=== PATIENT | female | born 1950 | race Caucasian/White ===

== ENCOUNTER 2017-08-31 06:18 | Observation (INO) | payer MEDICARE, OTHER ==
[~2017-08-31] VITALS: Ht 160 cm; Wt 75.8 kg
[~2017-08-31 06:18] MED LIST: ADVAIR 500/501 EA INH; ATENOLOL25 MG PO; ATENOLOL50 MG PO; ATORVASTATIN CA20 MG PO; BUPROBAN150 MG PO; CALCIUM500 M1 PO; CIPRO500 MG PO; DYMISTA NASAL S23 GM; ESTRADIOL1 MG PO; FLAGYL500 MG PO; FLECAINIDE ACE100 MG PO; KLOR-CON 88 MEQ PO; LEVAQUIN500 MG PO; LEVOCETIRIZINE D5 MG PO; LOSARTAN POTAS100 MG PO; LOSARTAN-HCTZ1 EAC1 PO; MARTINIC1 EACH PO; MONTELUKAST SOD10 MG PO; PANTOPRAZOLE SO40 MG PO; PROAIR HFA INH8.5 GM INH; PROMETHAZINE HC25 M1 PO; RESTASIS1 EACH OU; TYLENOL WITH C1 EACH PO; VITAMIN D-40400 UNIT PO; XYZAL5 MG PO
[2017-08-31] MEDS ORDERED: ASPIRIN 81 MG CHEW TAB PO ONE ×2 (07:00→09:00)
[2017-08-31 07:13] LABS: BASOPHILS % 0.5 % (0.0-1.0); EOSINOPHILS # (AUTO) 0.1 (0.0-0.4); EOSINOPHILS % 1.1 % (0.0-6.0); HEMATOCRIT 37.2 % (34.2-44.1); HEMOGLOBIN 13.3 g/dL (12.0-16.0); LYMPHOCYTES # (AUTO) 2.4 (1.0-3.2); LYMPHOCYTES % 28.5 % (18.0-39.1); MEAN CORPUSCULAR HEMOGLOBIN 29.5 pg (28-32); MEAN CORPUSCULAR HGB CONC 35.8 g/dL (31-35); MEAN CORPUSCULAR VOLUME 82.5 fL (81-99); MONOCYTES # (AUTO) 0.7 (0.2-0.8); MONOCYTES % 8.3 % (4.4-11.3); NEUTROPHILS # (AUTO) 5.2 (2.1-6.9); PLATELET COUNT 402 x10e3/uL (140-360); RED BLOOD COUNT 4.51 x10e6/uL (3.6-5.1); RED CELL DISTRIBUTION WIDTH 12.8 % (11.7-14.4)
--- NOTE | 2017-08-31 07:21 | Diagnostic Imaging Report ---
PROCEDURE:CHEST SINGLE (NOT PORTABLE) TECHNIQUE:PA chest INDICATION:Chest pain COMPARISON:Patients [facility], , CHEST SINGLE (PORTABLE), 08/31/2014, 7:19. FINDINGS: Lungs are clear and symmetrically inflated. No pleural effusions. Cardiac size, mediastinal contour and pulmonary vasculature are normal. Intact skeleton. CONCLUSION: No acute abnormality or conspicuous etiology for chest pain. Dictated by: Joni Maldonado M.D. on 08/31/2017 at 7:30 Electronically approved by: Joni Maldonado M.D. on 08/31/2017 at 7:30
[2017-08-31 07:24] LABS: INR 0.78; PROTHROMBIN TIME 11.2 seconds (11.9-14.5)
[2017-08-31 07:25] LABS: PARTIAL THROMBOPLASTIN TIME 27.4 seconds (23.8-35.5)
[2017-08-31 07:35] LABS: ALANINE AMINOTRANSFERASE 15 IU/L (0-55); ALBUMIN 3.5 g/dL (3.5-5.0); ALBUMIN/GLOBULIN RATIO 0.8 (0.8-2.0); ALKALINE PHOSPHATASE 120 IU/L (40-150); ANION GAP 14.8 mmol/L (8-16); BLOOD UREA NITROGEN 13 mg/dL (7-26); BUN/CREATININE RATIO 15 (6-25); CALCIUM 9.6 mg/dL (8.4-10.2); CARBON DIOXIDE 26 mmol/L (22-29); CHLORIDE 93 mmol/L (98-107); CREATINE KINASE 49 IU/L (29-168); CREATININE, SERUM 0.86 mg/dL (0.57-1.11); EST GLOMERULAR FILTRATION RATE > 60 ML/MIN (60-); GLUCOSE 93 mg/dL (74-118); SODIUM 131 mmol/L (136-145)
[2017-08-31 07:41] LABS: POTASSIUM 2.8 mmol/L (3.5-5.1)
[2017-08-31] MEDS ORDERED: POTASSIUM CHLORIDE 20 MEQ TAB CR PO STA (07:42)
[2017-08-31 08:28] LABS: BILIRUBIN,URINE NEGATIVE (NEGATIVE); CLARITY,URINE CLEAR (CLEAR); COLOR,URINE YELLOW (YELLOW); KETONES,URINE NEGATIVE (NEGATIVE); LEUKOCYTE ESTERASE ,URINE NEGATIVE (NEGATIVE); NITRITE,URINE NEGATIVE (NEGATIVE); PROTEIN,URINE DIPSTICK NEGATIVE (NEGATIVE); URINE UROBILINOGEN 0.2 mg/dL (0.2 - 1)
[2017-08-31] MEDS ORDERED: NITROGLYCERIN 2% OINT 1 GM PKT TOP ONE (08:30)
[2017-08-31] MEDS ORDERED: SODIUM CHLORIDE FLUSH 10 ML SYR INJ PRN (09:00)
[2017-08-31] MEDS ORDERED: NITROGLYCERIN 0.4 MG SUBL SL PRN (09:00)
[2017-08-31] MEDS ORDERED: ASPIRIN 81 MG ENTERIC COATED PO SCH (09:00)
[2017-08-31] MEDS ORDERED: CLOPIDOGREL BISULFATE 75 MG TAB PO STA (09:08)
[2017-08-31 09:17] LABS: BACTERIA,URINE RARE /HPF; EPITHELIAL CELLS,URINE FEW /LPF
[2017-08-31] MEDS: SODIUM CHLORIDE 0.9% 1000ML 1,000 ML IV SCH ×3 (09:30→23:33)
[2017-08-31] MEDS: FAMOTIDINE 20 MG TAB PO SCH ×2 (10:20→20:17)
[2017-08-31] MEDS: POTASSIUM CHLORIDE 20 MEQ TAB CR PO SCH ×3 (10:29→20:16)
[2017-08-31] MEDS ORDERED: METOPROLOL SUCC50 MG PO (15:03)
[2017-08-31] MEDS ORDERED: MAGNESIUM500 MG PO (15:03)
[2017-08-31] MEDS ORDERED: HYDROCHLOROTHIA25 MG PO (15:03)
[2017-08-31] MEDS ORDERED: OXYBUTYNIN CHLOR5 M1 PO (15:03)
[2017-08-31] MEDS ORDERED: LACTULOSE20 GM/30 M PO (15:03)
[2017-08-31] MEDS ORDERED: CALTRATE 600 W1 EACH PO (15:03)
[2017-08-31] MEDS ORDERED: RANITIDINE HCL150 MG PO (15:03)
[2017-08-31] MEDS ORDERED: AMLODIPINE BESY10 MG PO (15:03)
[2017-08-31] MEDS ORDERED: PANTOPRAZOLE SO40 MG PO (15:03)
[2017-08-31] MEDS ORDERED: VITAMIN B COMP1 EACH (15:03)
[2017-08-31] MEDS ORDERED: FUROSEMIDE40 MG PO (15:03)
[2017-08-31] MEDS ORDERED: LEVOCETIRIZINE D5 MG PO (15:03)
[2017-08-31 15:46] LABS: CREATINE KINASE MB 0.7 ng/mL (0.00-5.00)
--- NOTE | 2017-08-31 17:14 | History and Physical ---
The patient comes in with back pain. HISTORY OF PRESENT ILLNESS: Ms. Venegas has a history of irritable bowel syndrome. She was given Lactulose on a prophylactic basis for constipation or obstipation. She did have this on Monday and had violent diarrhea and the patient kept on going with amount of fluids. The patient felt weak and tired and this morning the patient woke up and walked into the [facility]. Her was questioning her mental status, and she was brought into the emergency room and was found to have hyperkalemia and also the patient complained of some chest pain and rule out chest pain. PAST MEDICAL HISTORY: History of hypertension. History of irritable bowel syndrome. History of allergic rhinitis. History of incontinence. History of reflux esophagitis and history of hypertension. Atrial fibrillation status post ablation. HOME MEDICATIONS: Amlodipine 10 mg, calcium carbonate, Caltrate, Lasix 40 mg as needed, hydrochlorothiazide 25 mg, levocetirizine at 5 mg, magnesium 500 mg, metoprolol ER 50 mg q.24 h, oxybutynin 5 mg, 40 mg, potassium chloride 80 mEq, Ranitidine 150 and vitamin B complex. PAST SURGICAL HISTORY: Cholecystectomy. She had a hysterectomy, and she also had ablation for atrial fibrillation, and she been taking blood thinner ever since. REVIEW OF SYSTEMS: Positive for some chest pain radiating to the back. Positive for some shortness of breath. No nausea or vomiting. Positive for diarrhea, as mentioned above. No constipation. No rectal bleeding. No hematochezia or hematemesis. Positive for some shortness of breath on exertion. PHYSICAL EXAMINATION GENERAL: The patient is alert and oriented x3. VITAL SIGNS: Blood pressure 122/59, pulse 57, respiratory rate 15. HEENT: Normocephalic, atraumatic. Pupils react to light and accommodation. CVS: S1 and S2 normal. Regular rate and rhythm. ABDOMEN: Nontender, nondistended. EXTREMITIES: No cyanosis, clubbing or edema. LABORATORY DATA: Labs of note: Sodium 131, potassium 2.8, albumin 4.4, BNP 41, BUN 13 and creatinine 0.86. Hematology: White count 8.46. Platelet count 402,000. Urine was all negative. ASSESSMENT 1. Hyperkalemia. 2. Hypernatremia. 3. Volume depletion. PLAN: Give the patient fluids. Will keep her off her diuretics right now. Fluids running at 25 mL an hour. Will go ahead and recheck her labs for tomorrow. Further recommendations depending on clinical course. Will continue to monitor the patient. The patient will be here maximum of 1-2 days. Will also replace potassium and lytes. Job#: [id number] [facility]
[2017-08-31 20:00] VITALS: BP 129/60
[2017-08-31 23:47] LABS: CREATINE KINASE MB 0.8 ng/mL (0.00-5.00)
[2017-09-01] VITALS (7 sets, daily range): BP systolic 106–133; BP diastolic 56–67
[2017-09-01 06:41] LABS: BASOPHILS % 0.6 % (0.0-1.0); EOSINOPHILS # (AUTO) 0.1 (0.0-0.4); EOSINOPHILS % 1.2 % (0.0-6.0); HEMATOCRIT 33.4 % (34.2-44.1); HEMOGLOBIN 11.8 g/dL (12.0-16.0); LYMPHOCYTES # (AUTO) 2.3 (1.0-3.2); LYMPHOCYTES % 34.9 % (18.0-39.1); MEAN CORPUSCULAR HGB CONC 35.3 g/dL (31-35); MONOCYTES # (AUTO) 0.6 (0.2-0.8); MONOCYTES % 8.4 % (4.4-11.3); NEUTROPHILS # (AUTO) 3.6 (2.1-6.9); NEUTROPHILS % 54.3 % (38.7-80.0); PLATELET COUNT 335 x10e3/uL (140-360); RED BLOOD COUNT 3.93 x10e6/uL (3.6-5.1); RED CELL DISTRIBUTION WIDTH 13.1 % (11.7-14.4)
[2017-09-01 07:00] LABS: ANION GAP 14.4 mmol/L (8-16); BLOOD UREA NITROGEN 9 mg/dL (7-26); BUN/CREATININE RATIO 13 (6-25); CALCIUM 8.8 mg/dL (8.4-10.2); CARBON DIOXIDE 21 mmol/L (22-29); CHLORIDE 103 mmol/L (98-107); EST GLOMERULAR FILTRATION RATE > 60 ML/MIN (60-); GLUCOSE 88 mg/dL (74-118); POTASSIUM 3.4 mmol/L (3.5-5.1); SODIUM 135 mmol/L (136-145)
[2017-09-01 07:15] LABS: CHOLESTEROL 186 MD/DL (0-199); HDL CHOLESTEROL 47 MG/DL (40-60); LDL CHOLESTEROL 119 MG/DL (60-130); TRIGLYCERIDES 98 MG/DL (0-149)
[2017-09-01] MEDS: SODIUM CHLORIDE 0.9% 1000ML 1,000 ML IV SCH ×2 (08:35→16:31)
[2017-09-01] MEDS ORDERED: AMLODIPINE BESYLATE 10 MG TAB PO SCH (09:00)
[2017-09-01] MEDS ORDERED: PANTOPRAZOLE SOD 40 MG TABEC PO SCH (09:00)
[2017-09-01] MEDS ORDERED: METOPROLOL SUCCINATE 50 MG TAB XL PO SCH (09:00)
[2017-09-01] MEDS: POTASSIUM CHLORIDE 20 MEQ TAB CR PO SCH ×2 (09:51→15:41)
[2017-09-01] MEDS: FAMOTIDINE 20 MG TAB PO SCH (09:52)
--- NOTE | 2017-10-02 20:50 | Discharge Summary ---
The patient came into the hospital with chest pain and hypokalemia. For hypokalemia, replaced the potassium. For chest pain, troponins were negative x3. For hypertension, the patient was feeling better and started back on her amlodipine 10 mg and metoprolol 50 mg, and also started back on pantoprazole. The potassium was better the next day. The patient was discharged home and asked to follow up with me in about a week's time. FINAL DIAGNOSES 1. Chest pain, ruled out myocardial infarction. 2. Hypokalemia. Replaced potassium. The patient is to follow up with me in about a week's time. For further information, look on the chart. For medicines on discharge, look on the medical reconciliation sheet. LUTHER MORRIS MD Job#: [id number] [facility]
== END 2017-09-01 18:22 | disposition home or self-care (01) ==
LOC: ER 06:18 → ERHOLD 08:56 → MED/SURG 16:01
PROVIDERS: ADMIT Family Medicine; ATTEND Family Medicine
DX: E87.5 Hyperkalemia (principal); E87.0 Hyperosmolality and hypernatremia; E86.9 Volume depletion, unspecified; K58.9 Irritable bowel syndrome, unspecified
CPT/HCPCS: 36415 ×2; 71045; 80048; 80053; 80061; 81001; 82550; 82553; 82948; 83735; 83880; 84484; 85025 ×2; 85610; 85730; 87086; 93005; 96360; 99284; G0378 ×2; J7030 ×2

== ENCOUNTER → 2017-12-18 | Outpatient (CLI) | payer MEDICARE, BC ==
[~2017-12-18] MED LIST changes: +AMLODIPINE BESY10 MG PO; +CALTRATE 600 W1 EACH PO; +FUROSEMIDE40 MG PO; +HYDROCHLOROTHIA25 MG PO; +LACTULOSE20 GM/30 M PO; +MAGNESIUM500 MG PO; +METOPROLOL SUCC50 MG PO; +OXYBUTYNIN CHLOR5 M1 PO; +RANITIDINE HCL150 MG PO; +VITAMIN B COMP1 EACH
== END ==
LOC: RAD 15:23
PROVIDERS: ATTEND Family Medicine
DX: R60.0 Localized edema (principal)
CPT/HCPCS: 93970

== ENCOUNTER 2023-07-29 14:29 | Inpatient (IN) | payer MEDICARE, BC ==
[~2023-07-29] VITALS: Ht 160 cm; Wt 75.7 kg
[2023-07-29 16:00] LABS: BASOPHILS % 0.2 % (0.0-1.0); EOSINOPHILS # (AUTO) 0.1 (0.0-0.4); EOSINOPHILS % 1.8 % (0.0-6.0); HEMATOCRIT 30.1 % (34.2-44.1); HEMOGLOBIN 10.3 g/dL (12.0-16.0); LYMPHOCYTES % 17.7 % (18.0-39.1); MEAN CORPUSCULAR HEMOGLOBIN 28.9 pg (28-32); MEAN CORPUSCULAR HGB CONC 34.2 g/dL (31-35); MEAN CORPUSCULAR VOLUME 84.6 fL (81-99); MONOCYTES # (AUTO) 0.5 (0.2-0.8); MONOCYTES % 8.5 % (4.4-11.3); NEUTROPHILS # (AUTO) 3.9 (2.1-6.9); NEUTROPHILS % 71.4 % (38.7-80.0); PLATELET COUNT 305 x10e3/uL (140-360); RED BLOOD COUNT 3.56 x10e6/uL (3.6-5.1); RED CELL DISTRIBUTION WIDTH 12.3 % (11.7-14.4); WHITE BLOOD COUNT 5.41 x10e3/uL (4.8-10.8)
[2023-07-29 16:19] LABS: ALBUMIN/GLOBULIN RATIO 0.7 (0.8-2.0); BILIRUBIN,TOTAL 1.5 mg/dL (0.2-1.2); CALCIUM 9.2 mg/dL (8.4-10.2); CREATININE, SERUM 0.97 mg/dL (0.57-1.11); TOTAL PROTEIN 7.3 g/dL (6.5-8.1)
[2023-07-29] MEDS ORDERED: SODIUM CHLORIDE FLUSH 10 ML SYR INJ PRN (18:00)
[2023-07-29] MEDS ORDERED: ONDANSETRON HCL INJ 2MG/ML 2ML 2 MG/ML VIAL IV PRN (18:00)
[2023-07-29 19:43] VITALS: BP 163/79; PULSE 84; RESP 20; TEMP 98; O2SAT 96
[2023-07-29 19:45] VITALS: BP 163/79; PULSE 84; RESP 20; TEMP 98; O2SAT 96
[2023-07-29 20:00] VITALS: BP 163/79; PULSE 84; RESP 20; TEMP 98; O2SAT 96
[2023-07-30] VITALS: BP 176/76; PULSE 87; RESP 18; TEMP 98; O2SAT 96
[2023-07-30] MEDS: FUROSEMIDE INJ 10 MG/ML 4 ML VIAL IV SCH ×3 (00:09→21:15)
[2023-07-30] MEDS ORDERED: HYDRALAZINE HCL50 MG PO (02:31)
[2023-07-30] MEDS ORDERED: POTASSIUM CHLO20 ME2 PO (02:31)
[2023-07-30] MEDS ORDERED: ZYRTEC10 M3 PO (02:35)
[2023-07-30] MEDS ORDERED: FAMOTIDINE20 MG PO (02:36)
[2023-07-30] MEDS ORDERED: LINZESS290 MCG PO (02:39)
[2023-07-30] MEDS ORDERED: COREG12.5 MG PO (02:40)
[2023-07-30] MEDS ORDERED: XYZAL5 MG PO (02:41)
[2023-07-30] MEDS ORDERED: CLOPIDOGREL75 MG PO (02:44)
[2023-07-30] MEDS ORDERED: LORATADINE 10 MG TAB PO PRN (05:00)
[2023-07-30 07:49] LABS: BASOPHILS % 0.2 % (0.0-1.0); EOSINOPHILS # (AUTO) 0.2 (0.0-0.4); EOSINOPHILS % 3.2 % (0.0-6.0); HEMATOCRIT 29.8 % (34.2-44.1); HEMOGLOBIN 10.5 g/dL (12.0-16.0); LYMPHOCYTES # (AUTO) 1.1 (1.0-3.2); LYMPHOCYTES % 23.8 % (18.0-39.1); MEAN CORPUSCULAR HEMOGLOBIN 28.9 pg (28-32); MEAN CORPUSCULAR HGB CONC 35.2 g/dL (31-35); MEAN CORPUSCULAR VOLUME 82.1 fL (81-99); MONOCYTES # (AUTO) 0.6 (0.2-0.8); NEUTROPHILS # (AUTO) 2.8 (2.1-6.9); NEUTROPHILS % 59.9 % (38.7-80.0); PLATELET COUNT 333 x10e3/uL (140-360); RED BLOOD COUNT 3.63 x10e6/uL (3.6-5.1); RED CELL DISTRIBUTION WIDTH 12.2 % (11.7-14.4); WHITE BLOOD COUNT 4.67 x10e3/uL (4.8-10.8)
[2023-07-30 08:00] VITALS: BP 136/68; PULSE 87; RESP 19; TEMP 98.6; O2SAT 97
[2023-07-30 08:14] LABS: ALBUMIN 2.8 g/dL (3.5-5.0); ALBUMIN/GLOBULIN RATIO 0.7 (0.8-2.0); ANION GAP 16.3 mmol/L (8-16); BILIRUBIN,TOTAL 1.1 mg/dL (0.2-1.2); CALCIUM 9.1 mg/dL (8.4-10.2); CREATININE, SERUM 0.89 mg/dL (0.57-1.11)
[2023-07-30 08:16] LABS: POTASSIUM 3.3 mmol/L (3.5-5.1)
[2023-07-30] MEDS: PANTOPRAZOLE SOD 40 MG TABEC PO SCH ×2 (08:38→17:13)
[2023-07-30] MEDS: CLOPIDOGREL BISULFATE 75 MG TAB PO SCH (08:38)
[2023-07-30] MEDS: CARVEDILOL 12.5 MG TAB PO SCH ×2 (08:39→17:14)
[2023-07-30 08:53] VITALS: BP 136/68; PULSE 87; RESP 19; TEMP 98.6; O2SAT 98
[2023-07-30] MEDS ORDERED: FAMOTIDINE 20 MG TAB PO SCH (09:00)
[2023-07-30 12:08] VITALS: BP 142/76; PULSE 75; RESP 19; TEMP 97.7; O2SAT 95
[2023-07-30 16:41] VITALS: BP 148/73; PULSE 80; RESP 20; TEMP 98.7; O2SAT 100
[2023-07-30] MEDS ORDERED: ALBUTEROL/IPRATROPIUM 3 ML NEB NEB PRN (18:30)
[2023-07-30] MEDS ORDERED: BENZONATATE 100 MG CAP PO PRN (18:30)
[2023-07-30 20:00] VITALS: BP 139/90; PULSE 74; RESP 18; TEMP 96.5; O2SAT 100
[2023-07-30] MEDS: FAMOTIDINE 20 MG TAB PO SCH (21:16)
[2023-07-31] VITALS (11 sets, daily range): BP systolic 132–154; BP diastolic 67–80; PULSE 72–85; RESP 16–20; TEMP 95.7–98.8; O2SAT 93–100
[2023-07-31] MEDS ORDERED: FUROSEMIDE 20 MG TAB PO SCH (09:00)
[2023-07-31] MEDS ORDERED: SUCRALFATE 1 GM TAB PO PRN (09:15)
[2023-07-31] MEDS: CLOPIDOGREL BISULFATE 75 MG TAB PO SCH (09:18)
[2023-07-31] MEDS: PANTOPRAZOLE SOD 40 MG TABEC PO SCH ×2 (09:18→17:11)
[2023-07-31] MEDS: CARVEDILOL 12.5 MG TAB PO SCH ×2 (09:19→17:12)
[2023-07-31] MEDS: GUAIFENESIN/CODEINE 5 ML LIQD PO PRN ×3 (09:27→21:07)
[2023-07-31] MEDS: ALBUTEROL/IPRATROPIUM 3 ML NEB NEB SCH ×3 (09:59→19:11)
[2023-07-31] MEDS: BUDESONIDE 0.5MG/2 ML NEB INH SCH ×2 (09:59→19:13)
[2023-07-31] MEDS ORDERED: ONDANSETRON HCL 4 MG ORAL DISINTEGRATING TAB PO PRN (12:15)
[2023-07-31] MEDS: AMOXICILLIN 250 MG CAP PO SCH ×2 (17:12→21:07)
[2023-07-31] MEDS: MONTELUKAST SODIUM 10 MG TAB PO SCH (21:07)
[2023-07-31] MEDS: LORATADINE 10 MG TAB PO SCH (21:07)
[2023-07-31] MEDS: FAMOTIDINE 20 MG TAB PO SCH (21:07)
[2023-08-01] VITALS (11 sets, daily range): BP systolic 131–163; BP diastolic 60–75; PULSE 72–86; RESP 16–19; TEMP 98.5–99.1; O2SAT 94–100
[2023-08-01] MEDS: ALBUTEROL/IPRATROPIUM 3 ML NEB NEB SCH ×4 (01:00→18:54)
[2023-08-01] MEDS: AMOXICILLIN 250 MG CAP PO SCH ×3 (05:28→21:02)
[2023-08-01 05:50] LABS: BASOPHILS % 0.4 % (0.0-1.0); EOSINOPHILS # (AUTO) 0.2 (0.0-0.4); EOSINOPHILS % 3.7 % (0.0-6.0); HEMATOCRIT 28.8 % (34.2-44.1); LYMPHOCYTES # (AUTO) 1.3 (1.0-3.2); LYMPHOCYTES % 23.7 % (18.0-39.1); MEAN CORPUSCULAR HEMOGLOBIN 28.6 pg (28-32); MEAN CORPUSCULAR HGB CONC 34.7 g/dL (31-35); MEAN CORPUSCULAR VOLUME 82.3 fL (81-99); MONOCYTES # (AUTO) 0.7 (0.2-0.8); MONOCYTES % 12.9 % (4.4-11.3); NEUTROPHILS # (AUTO) 3.3 (2.1-6.9); NEUTROPHILS % 58.2 % (38.7-80.0); PLATELET COUNT 354 x10e3/uL (140-360); WHITE BLOOD COUNT 5.65 x10e3/uL (4.8-10.8)
[2023-08-01 06:27] LABS: CALCIUM 8.9 mg/dL (8.4-10.2); CREATININE, SERUM 0.88 mg/dL (0.57-1.11)
[2023-08-01] MEDS: BUDESONIDE 0.5MG/2 ML NEB INH SCH ×2 (06:50→18:55)
[2023-08-01] MEDS ORDERED: POTASSIUM CHLORIDE 20 MEQ TAB CR PO STA (08:14)
[2023-08-01] MEDS ORDERED: SODIUM CHLORIDE 0.9% 1000ML 1,000 ML IV SCH (08:15)
[2023-08-01] MEDS ORDERED: POTASSIUM CHLORIDE 20MEQ/100ML 100 ML IV ONE (08:15)
[2023-08-01] MEDS: CARVEDILOL 12.5 MG TAB PO SCH ×2 (09:05→17:41)
[2023-08-01] MEDS: CLOPIDOGREL BISULFATE 75 MG TAB PO SCH (09:05)
[2023-08-01] MEDS: PANTOPRAZOLE SOD 40 MG TABEC PO SCH ×2 (09:05→15:46)
[2023-08-01] MEDS: SODIUM CHLORIDE 1 GM TAB PO SCH ×3 (09:06→21:02)
[2023-08-01] MEDS: ONDANSETRON HCL INJ 2MG/ML 2ML 2 MG/ML VIAL IV PRN ×3 (10:06→20:36)
[2023-08-01] MEDS: LORATADINE 10 MG TAB PO SCH (21:01)
[2023-08-01] MEDS: GUAIFENESIN/CODEINE 5 ML LIQD PO PRN (21:02)
[2023-08-01] MEDS: FAMOTIDINE 20 MG TAB PO SCH (21:02)
[2023-08-01] MEDS: MONTELUKAST SODIUM 10 MG TAB PO SCH (21:02)
[2023-08-02] VITALS (9 sets, daily range): BP systolic 127–182; BP diastolic 61–82; PULSE 74–91; RESP 15–20; TEMP 98.8–99.3; O2SAT 95–100
[2023-08-02] MEDS: ALBUTEROL/IPRATROPIUM 3 ML NEB NEB SCH ×3 (01:00→13:12)
[2023-08-02] MEDS: AMOXICILLIN 250 MG CAP PO SCH ×2 (05:52→14:37)
[2023-08-02] MEDS: BUDESONIDE 0.5MG/2 ML NEB INH SCH (06:49)
[2023-08-02 06:50] LABS: CALCIUM 8.7 mg/dL (8.4-10.2); CREATININE, SERUM 0.88 mg/dL (0.57-1.11)
[2023-08-02] MEDS: PANTOPRAZOLE SOD 40 MG TABEC PO SCH ×2 (08:34→18:00)
[2023-08-02] MEDS: CLOPIDOGREL BISULFATE 75 MG TAB PO SCH (09:07)
[2023-08-02] MEDS: SODIUM CHLORIDE 1 GM TAB PO SCH (09:07)
[2023-08-02] MEDS: CARVEDILOL 12.5 MG TAB PO SCH ×2 (09:08→18:03)
[2023-08-02] MEDS: ONDANSETRON HCL INJ 2MG/ML 2ML 2 MG/ML VIAL IV PRN (09:14)
[2023-08-02] MEDS: GUAIFENESIN/CODEINE 5 ML LIQD PO PRN (18:04)
== END 2023-08-02 18:45 | disposition home or self-care (01) | DRG 194 ==
LOC: ER 15:34 → ERHOLD 17:54 → MED/SURG3 19:45 → OBSVTOIN 07-31 08:21
PROVIDERS: ADMIT Family Medicine; ATTEND Family Medicine
DX: J18.9 Pneumonia, unspecified organism (principal); E87.1 Hypo-osmolality and hyponatremia; Z11.52 Encounter for screening for COVID-19; E78.00 Pure hypercholesterolemia, unspecified; I10 Essential (primary) hypertension; D64.9 Anemia, unspecified; I48.0 Paroxysmal atrial fibrillation; Z86.16 Personal history of COVID-19; I25.10 Atherosclerotic heart disease of native coronary artery without angina pectoris; M17.0 Bilateral primary osteoarthritis of knee; Z90.49 Acquired absence of other specified parts of digestive tract; Z79.02 Long term (current) use of antithrombotics/antiplatelets; K21.00 Gastro-esophageal reflux disease with esophagitis, without bleeding
CPT/HCPCS: 36415; 70220; 71045; 71250; 80048; 80053; 83880; 84295; 84484; 85025; 87400; 93005; 93306; 94667; 94799; 99284; G0378; J1940; J2405; J3480; J7030; Q0162; U0002